=== PATIENT | female | born 1960 | race Caucasian/White ===

== ENCOUNTER → 2018-06-25 | Outpatient (CLI) | payer BC ==
--- NOTE | 2018-06-26 09:16 | MM ---
Reason for exam: screening (asymptomatic). Last mammogram was performed 3 years and 5 months ago. History: Patient is postmenopausal. Family history of breast cancer in sister at age 54. Took hormonal contraceptives for 5 years. Physical Findings: A clinical breast exam by your physician is recommended on an annual basis and results should be correlated with mammographic findings. MG 3D Screening Mammo W/Cad Bilateral CC and MLO view(s) were taken. Prior study comparison: January 31, 2015, bilateral MG screening mammo w CAD. November 30, 2013, bilateral MG screening mammo w CAD. The breast tissue is heterogeneously dense. This may lower the sensitivity of mammography. No suspicious abnormality on the right. Focal asymmetry of the left upper inner quadrant at anterior depth 2.5cm from nipple on CC view and 3cm from nipple on MLO view. ASSESSMENT: Incomplete: need additional imaging evaluation, BI-RAD 0 RECOMMENDATION: Special view mammogram of the left breast. If lesion persists on supplemental views, image directed ultrasound is recommended. [facility] will attempt to contact patient to return for supplemental views and ultrasound if indicated.
== END ==
LOC: RADMAMWWP 15:44
PROVIDERS: ATTEND Family Medicine
DX: Z12.31 Encounter for screening mammogram for malignant neoplasm of breast (principal)
CPT/HCPCS: 77063; 77067

== ENCOUNTER → 2018-07-16 | Outpatient (CLI) | payer BC ==
--- NOTE | 2018-07-16 13:31 | MM ---
Reason for exam: additional evaluation requested from abnormal screening. Last mammogram was performed 1 month ago. History: Patient is postmenopausal. Family history of breast cancer in sister at age 54. Took hormonal contraceptives for 5 years. Physical Findings: Nurse did not find any significant physical abnormalities on exam. MG 3D Work Up W/Cad LT LM and spot compression MLO view(s) were taken of the left breast. Prior study comparison: June 25, 2018, bilateral MG 3d screening mammo w/cad. January 31, 2015, bilateral MG screening mammo w CAD. The breast tissue is heterogeneously dense. This may lower the sensitivity of mammography. These results were verbally communicated with the patient and result sheet given to the patient on 07/16/18. ASSESSMENT: Benign, BI-RAD 2 RECOMMENDATION: Return to routine screening mammogram schedule for both breasts.
== END ==
LOC: RADMAMWWP 08:06
PROVIDERS: ATTEND Family Medicine
DX: R92.8 Other abnormal and inconclusive findings on diagnostic imaging of breast (principal)
CPT/HCPCS: 77061; 77065

== ENCOUNTER → 2019-07-22 | Outpatient (CLI) | payer BC ==
--- NOTE | 2019-07-26 09:38 | MM ---
Reason for exam: screening (asymptomatic). Last mammogram was performed 1 year ago. History: Patient is postmenopausal. Family history of breast cancer in sister at age 54. Took hormonal contraceptives for 5 years. Physical Findings: A clinical breast exam by your physician is recommended on an annual basis and results should be correlated with mammographic findings. MG 3D Screening Mammo W/Cad Bilateral CC and MLO view(s) were taken. Prior study comparison: July 16, 2018, left breast MG 3d work up w/cad LT. June 25, 2018, bilateral MG 3d screening mammo w/cad. The breast tissue is heterogeneously dense. This may lower the sensitivity of mammography. Posterior and superior asymmetric density on the right MLO view incompletely disperses on 3D. ASSESSMENT: Incomplete: need additional imaging evaluation, BI-RAD 0 RECOMMENDATION: Special view mammogram of the right breast. (3D) If lesion persists on supplemental views, image directed ultrasound is recommended. [facility] will attempt to contact patient to return for supplemental views and ultrasound if indicated.
== END | disposition home or self-care (01) ==
LOC: RADMAMWWP 15:55
PROVIDERS: ATTEND Family Medicine
DX: Z12.31 Encounter for screening mammogram for malignant neoplasm of breast (principal); R92.8 Other abnormal and inconclusive findings on diagnostic imaging of breast
CPT/HCPCS: 77063; 77067

== ENCOUNTER → 2019-08-04 | Outpatient (CLI) | payer BC ==
--- NOTE | 2019-08-05 11:42 | MM ---
Reason for exam: additional evaluation requested from abnormal screening. Last mammogram was performed less than 1 month ago. History: Patient is postmenopausal. Family history of breast cancer in sister at age 54. Took hormonal contraceptives for 5 years. Physical Findings: Nurse did not find any significant physical abnormalities on exam. MG 3D Work Up W/Cad RT Spot compression CC, spot compression MLO, and ML view(s) were taken of the right breast. Prior study comparison: July 22, 2019, bilateral MG 3d screening mammo w/cad. July 16, 2018, left breast MG 3d work up w/cad LT. The breast tissue is heterogeneously dense. This may lower the sensitivity of mammography. There is no discrete abnormality including area of concern on compression and ML. These results were verbally communicated with the patient and result sheet given to the patient on 08/04/19. ASSESSMENT: Benign, BI-RAD 2 RECOMMENDATION: Return to routine screening mammogram schedule for both breasts. Back on schedule.
== END | disposition home or self-care (01) ==
LOC: RADMAMWWP 14:20
PROVIDERS: ATTEND Family Medicine
DX: R92.8 Other abnormal and inconclusive findings on diagnostic imaging of breast (principal)
CPT/HCPCS: 77061; 77065

== ENCOUNTER 2022-12-07 12:34 | Emergency (ER) | payer BC ==
--- NOTE | 2022-12-07 12:53 | ED ---
General Adult HPI - General Chief complaint: Fall Stated complaint: Fall-back injury Time Seen by Provider: 12/07/22 12:51 Source: patient Mode of arrival: ambulatory Limitations: no limitations - History of Present Illness Initial comments: Patient presents to the ED with her for evaluation status post sustaining a mechanical fall 4 days ago. Patient states that she acidentally tripped on something in her garage and fell onto the left side of her back. Patient states that she has been having left posterior and lateral rib pain since this fall. Patient states that her pain has been getting worse daily. Patient states that she has been taking naproxen for her pain without much relief (last dose yesterday). Patient admits that her pain is worse with deep inspiration and certain changes in position. Patient admits to head injury at that time, but she denies LOC or headache. Patient denies use of any anticoagulant medications. Patient denies any other injury or site of pain. Patient denies headache, LOC, focal numbness/weakness/neuro deficit, visual changes, neck/upper back pain, dyspnea, cough or cold symptoms, palpitations, dizziness, abdominal pain, nausea or vomiting, dysuria/hematuria/urinary frequency/urinary symptoms, or any other symptoms or complaints. - Related Data Allergies Allergy/AdvReac Type Severity Reaction Status Date / Time No Known Allergies Allergy Verified 12/07/22 12:49 Review of Systems ROS Statement: Those systems with pertinent positive or pertinent negative responses have been documented in the HPI. ROS Other: All systems not noted in ROS Statement are negative. Past Medical History Past Medical History: No Reported History History of Any Multi-Drug Resistant Organisms: None Reported Past Surgical History: No Surgical Hx Reported Past Psychological History: No Psychological Hx Reported Smoking Status: Current every day smoker Past Alcohol Use History: Occasional Past Drug Use History: None Reported General Exam Limitations: no limitations General appearance: alert, in no apparent distress Head exam: Present: atraumatic, normocephalic Eye exam: Present: normal appearance, PERRL, EOMI ENT exam: Present: mucous membranes moist, TM's normal bilaterally Neck exam: Present: other (Trachea is in midline). Absent: tenderness Respiratory exam: Present: normal lung sounds bilaterally, other (Left lateral chest wall tenderness without any ecchymosis, deformity or crepitation noted). Absent: respiratory distress, wheezes, rales, rhonchi, stridor Cardiovascular Exam: Present: regular rate, normal rhythm, normal heart sounds, other (Normal radial pulses bilaterally) GI/Abdominal exam: Present: soft. Absent: distended, tenderness, guarding Extremities exam: Present: full ROM. Absent: tenderness, pedal edema Back exam: Present: full ROM, other (Left thoracic/posterior rib tenderness without any ecchymosis, deformity or crepitation appreciated; no midline spinal tenderness) Neurological exam: Present: alert, oriented X3, CN II-XII intact. Absent: motor sensory deficit Psychiatric exam: Present: normal affect, normal mood Skin exam: Present: warm, dry, intact, normal color Course Vital Signs 12/07/22 12:46 Temperature 97.9 F Pulse Rate 84 Respiratory 20 Rate Blood Pressure 125/89 O2 Sat by Pulse 97 Oximetry - Reevaluation(s) Reevaluation #1: 12/07/22 15:53 Patient denies development of any new pain or symptoms while in the ED. Patient remains alert and breathing comfortably with a normal room air oxygen saturation. Patient and are aware of the patient's x-ray finding of rib fractures. Patient feels comfortable being discharged home at this time. Patient will be provided with a starter pack of Tylenol #3's, as well as an incentive spirometer with education, from the ED. Patient was counseled about rib fractures, and she was clearly explained return and follow-up instructions. Patient was instructed to follow up closely with her primary care provider. Patient feels comfortable with this plan. Medical Decision Making - Medical Decision Making Was pt. sent in by a medical professional or institution (, PA, LEATHER STITCHER, urgent care, hospital, or longterm...) When possible be specific @ -No Did you speak to anyone other than the patient for history (EMS, parent, family, police, friend...)? What history was obtained from this source @ -No Did you review nursing and triage notes (agree or disagree)? Why? @ -I reviewed and agree with nursing and triage notes Were old charts reviewed (outside hosp., previous admission, EMS record, old EKG, old radiological studies, urgent care reports/EKG's, longterm records)? Report findings @ -No old charts were reviewed Differential Diagnosis (chest pain, altered mental status, abdominal pain women, abdominal pain men, vaginal bleeding, weakness, fever, dyspnea, syncope, headache, dizziness, GI bleed, back pain, seizure, CVA, palpatations, mental health, musculoskeletal)? @ -Fall, contusion, fracture, strain, pneumothorax EKG interpreted by me (3pts min.). @ -None done X-rays interpreted by me (1pt min.). @ -As above CT interpreted by me (1pt min.). @ -None done U/S interpreted by me (1pt. min.). @ -None done What testing was considered but not performed or refused? (CT, X-rays, U/S, labs)? Why? @ -None What meds were considered but not given or refused? Why? @ -None Did you discuss the management of the patient with other professionals (professionals i.e. , PA, LEATHER STITCHER, lab, RT, psych nurse, child welfare social worker, neighborhood coordinator, teacher, food safety officer, social work case manager)? Give summary @ -No Was smoking cessation discussed for >3mins.? @ -No Was critical care preformed (if so, how long)? @ -No Were there social determinants of health that impacted care today? How? (Homelessness, low income, unemployed, alcoholism, drug addiction, transportation, low edu. Level, literacy, decrease access to med. care, retirement, rehab)? @ -No Was there de-escalation of care discussed even if they declined (Discuss DNR or withdrawal of care, Hospice)? DNR status @ -No What co-morbidities impacted this encounter? (DM, HTN, Smoking, COPD, CAD, Cancer, CVA, ARF, Chemo, Hep., AIDS, mental health diagnosis, sleep apnea, morbid obesity)? @ -None Was patient admitted / discharged? Hospital course, mention meds given and route, prescriptions, significant lab abnormalities, going to OR and other pertinent info. @ -Patient was treated with oral pain meds in the ED. Patient and are aware of the patient's x-ray finding of rib fractures. Patient will be provided with a starter pack of Tylenol #3's, as well as an incentive spirometer with education, from the ED. Patient was counseled about rib fractures, and she was clearly explained return and follow-up instructions. Patient was instructed to follow up closely with her primary care provider. Patient feels comfortable with this plan. Undiagnosed new problem with uncertain prognosis? @ -No Drug Therapy requiring intensive monitoring for toxicity (Heparin, Nitro, Insulin, Cardizem)? @ -No Were any procedures done? @ -No Diagnosis/symptom? @ -Left-sided rib fractures Acute, or Chronic, or Acute on Chronic? @ -Acute Uncomplicated (without systemic symptoms) or Complicated (systemic symptoms)? @ -Uncomplicated Side effects of treatment? @ -No Exacerbation, Progression, or Severe Exacerbation? @ -No Poses a threat to life or bodily function? How? (Chest pain, [place], [place], pneumonia, PE, COPD, DKA, ARF, appy, cholecystitis, CVA, Diverticulitis, Homicidal, Suicidal, threat to staff... and all critical care pts) @ -No - Radiology Data Left ribs/PA chest x-rays (interpreted by me): Mildly displaced left anterolateral eighth and ninth rib fractures. No evidence of pneumothorax. Disposition Clinical Impression: Fall, Left rib fracture Disposition: HOME SELF-CARE Condition: Stable Instructions (If sedation given, give patient instructions): Rib Fracture (ED), Fall Prevention (ED) Additional Instructions: Return to the ER immediately should you develop new or worsening pain, a fever, difficulty breathing, feeling dizzy or faint, or new or worsening symptoms. Follow up closely with your primary care provider. Is patient prescribed a controlled substance at d/c from ED?: No Referrals: Beni Hercules MD [Primary Care Provider] - 1-2 days Time of Disposition: 15:55
--- NOTE | 2022-12-07 13:44 | XR ---
EXAMINATION TYPE: XR ribs LT w pa chest xray DATE OF EXAM: 12/07/2022 CLINICAL HISTORY: Falling injury with left-sided pain. TECHNIQUE: Single frontal view of the chest is obtained. A frontal and oblique images left-sided ribs . COMPARISON: Chest and left-sided rib x-ray March 10, 2022 FINDINGS: There is no suspicious new focal air space opacity, pleural effusion, or pneumothorax seen . The cardiac silhouette size is stable and within normal limits. Underlying scoliosis is redemonstr ated. Dedicated images of the left-sided ribs show no acute displaced fracture. Overlying soft tissue is un remarkable. IMPRESSION: 1. No acute cardiopulmonary process. 2. No acute displaced left-sided rib fracture. No significant change from prior.
[2022-12-07] MEDS: HYDROcodone/APAP 5-325MG 1 EACH TAB PO STA ×3 (13:51→13:57)
[2022-12-07] MEDS ORDERED: ACET/COD 300 MG/30 MG STARTER PACK 6 TAB BTL PO STA (13:53)
[2022-12-07 16:14] VITALS: BP 119/71; PULSE 66; RESP 18; TEMP 97.2
== END 2022-12-07 16:14 | disposition home or self-care (01) ==
LOC: EC 12:34
DX: S22.32XA Fracture of one rib, left side, initial encounter for closed fracture (principal); F17.200 Nicotine dependence, unspecified, uncomplicated; W01.0XXA Fall on same level from slipping, tripping and stumbling without subsequent striking against object, initial encounter
CPT/HCPCS: 99284

== ENCOUNTER 2023-11-29 16:09 | Inpatient (IN) | payer BC ==
[2023-11-29] MEDS: MORPHINE SULFATE 4 MG/ML SYRINGE IV STA (16:51)
--- NOTE | 2023-11-29 16:53 | ED ---
Fall HPI - General Chief Complaint: Fall Stated Complaint: R hip dislocation Time Seen by Provider: 11/29/23 16:17 Source: patient, EMS Mode of arrival: EMS - History of Present Illness Initial Comments: This patient is a 63-year-old woman who presents to have evaluation of right hip injury. The patient states that she had been in bed around 3 AM. She got up to use the bathroom and states that she usually sits up in bed to get her surroundings but she got right up. She became lightheaded and fell landing on her right hip. She states that she was then not able to get up and cannot walk on her right leg. EMS was called and brings her here to have evaluation. She did receive fentanyl for the pain related to the injury but states that the pain is coming back. Patient denies weakness or numbness of the extremity. She denies any other injury. MD Complaint: fall Onset/Timin -: hour(s) Fall From: standing When Fall Occurred: other (13) Fall Witnessed: no Place Fall Occurred: home Loss of Consciousness: none Prolonged Down Time?: yes Symptoms Prior to Fall: lightheadedness Location - Extremities: Right: Thigh Severity: severe Quality: sharp Associated Symptoms: lightheaded - Related Data Allergies Allergy/AdvReac Type Severity Reaction Status Date / Time No Known Allergies Allergy Verified 11/29/23 16:18 Review of Systems ROS Statement: Those systems with pertinent positive or pertinent negative responses have been documented in the HPI. ROS Other: All systems not noted in ROS Statement are negative. Constitutional: Denies: fever, weakness Respiratory: Denies: cough, dyspnea Cardiovascular: Denies: chest pain, palpitations, edema, syncope Gastrointestinal: Denies: abdominal pain, nausea, vomiting Genitourinary: Denies: dysuria, hematuria Musculoskeletal: Denies: back pain Skin: Denies: rash Neurological: Denies: headache, weakness, numbness, paresthesias Hematological/Lymphatic: Denies: easy bleeding Past Medical History Past Medical History: No Reported History History of Any Multi-Drug Resistant Organisms: None Reported Past Surgical History: No Surgical Hx Reported Past Psychological History: No Psychological Hx Reported Smoking Status: Current every day smoker Past Alcohol Use History: Occasional Past Drug Use History: None Reported General Exam Limitations: no limitations General appearance: alert, in no apparent distress Head exam: Present: atraumatic, normocephalic Eye exam: Present: normal appearance. Absent: scleral icterus, conjunctival injection Neck exam: Present: normal inspection, full ROM. Absent: tenderness Respiratory exam: Present: normal lung sounds bilaterally. Absent: respiratory distress, wheezes, rales, rhonchi, stridor, chest wall tenderness, accessory m uscle use Cardiovascular Exam: Present: regular rate, normal rhythm, normal heart sounds. Absent: systolic murmur, diastolic murmur, rubs, gallop GI/Abdominal exam: Present: soft. Absent: distended, tenderness, guarding, rebound, rigid, mass Extremities exam: Present: tenderness. Absent: full ROM Right Hip exam: Present: tenderness, deformity, internal rotation, shortening. Absent: full ROM, laceration, ecchymosis, crepitus, dislocation Upper Leg exam: Absent: tenderness, swelling Knee exam: Absent: tenderness, swelling Lower Leg exam: Present: full ROM. Absent: tenderness, swelling Ankle exam: Present: full ROM. Absent: tenderness, swelling Foot/Toe exam: Present: full ROM. Absent: tenderness, swelling Neurovascular tendon exam: Present: no vascular compromise. Absent: pulse deficit, abnormal cap refill, motor deficit, sensory deficit Back exam: Present: normal inspection. Absent: CVA tenderness (R), CVA tenderness (L), vertebral tenderness Neurological exam: Present: alert Skin exam: Present: warm, dry, intact, normal color. Absent: rash Course Vital Signs 11/29/23 11/29/23 16:12 17:47 Temperature 98.0 F Pulse Rate 76 73 Respiratory 18 18 Rate Blood Pressure 128/71 125/73 O2 Sat by Pulse 98 98 Oximetry Medical Decision Making - Medical Decision Making The patient had pelvis x-ray which I interpreted to show right femoral neck fracture The patient had right femur x-ray which I interpreted to show right femoral neck fracture The patient had chest x-ray which I interpreted to show scoliosis of the spine. No evident rib fracture or pneumothorax. Was pt. sent in by a medical professional or institution (, PA, WAREHOUSE GENERAL LABORER, urgent care, hospital, or fci...) When possible be specific @ -[No] Did you speak to anyone other than the patient for history (EMS, parent, family, police, friend...)? What history was obtained from this source @ -[No] Did you review nursing and triage notes (agree or disagree)? Why? @ -[I reviewed and agree with nursing and triage notes] Were old charts reviewed (outside hosp., previous admission, EMS record, old EKG, old radiological studies, urgent care reports/EKG's, fci records)? Report findings @ -[No old charts were reviewed] Differential Diagnosis (chest pain, altered mental status, abdominal pain women, abdominal pain men, vaginal bleeding, weakness, fever, dyspnea, syncope, headache, dizziness, GI bleed, back pain, seizure, CVA, palpatations, mental health, musculoskeletal)? @ -Differential Musculoskeletal Muscular strain, contusion, ligament sprain, fracture, arthritis, septic arthritis, bursitis, cellulitis, muscle spasm, nerve compression, DVT, arterial occlusion, herpes zoster, electrolyte abnormality, tumor.... This is not meant to be in all inclusive list EKG interpreted by me (3pts min.). @ -[As above] X-rays interpreted by me (1pt min.). @ -[I interpreted as above CT interpreted by me (1pt min.). @ -[None done] U/S interpreted by me (1pt. min.). @ -[None done] What testing was considered but not performed or refused? (CT, X-rays, U/S, labs)? Why? @ -[None] What meds were considered but not given or refused? Why? @ -[None] Did you discuss the management of the patient with other professionals (professionals i.e. , PA, WAREHOUSE GENERAL LABORER, lab, RT, psych nurse, case management social worker, program schedule clerk, teacher, sales officer, case work aide)? Give summary @ -[Case discussed with the orthopedic surgery team, they are currently in the hospital and will see the patient to decide on the appropriate surgical treatment. Was smoking cessation discussed for >3mins.? @ -[No] Was critical care preformed (if so, how long)? @ -[No] Were there social determinants of health that impacted care today? How? (Homelessness, low income, unemployed, alcoholism, drug addiction, transportation, low edu. Level, literacy, decrease access to med. care, half-way, rehab)? @ -[No] Was there de-escalation of care discussed even if they declined (Discuss DNR or withdrawal of care, Hospice)? DNR status @ -[No] What co-morbidities impacted this encounter? (DM, HTN, Smoking, COPD, CAD, Cancer, CVA, ARF, Chemo, Hep., AIDS, mental health diagnosis, sleep apnea, morb id obesity)? @ -[Smoking, hypertension Was patient admitted / discharged? Hospital course, mention meds given and route, prescriptions, significant lab abnormalities, going to OR and other pertinent info. @ -[Patient admitted, as above Undiagnosed new problem with uncertain prognosis? @ -[No] Drug Therapy requiring intensive monitoring for toxicity (Heparin, Nitro, Insulin, Cardizem)? @ -[No] Were any procedures done? @ -[No] Diagnosis/symptom? @ -[Acute right femoral neck fracture Acute, or Chronic, or Acute on Chronic? @ -[Acute Uncomplicated (without systemic symptoms) or Complicated (systemic symptoms)? @ -[Uncomplicated Side effects of treatment? @ -[No] Exacerbation, Progression, or Severe Exacerbation? @ -[No] Poses a threat to life or bodily function? How? (Chest pain, [place], [place], pneumonia, PE, COPD, DKA, ARF, appy, cholecystitis, CVA, Diverticulitis, Homicidal, Suicidal, threat to staff... and all critical care pts) @ -[No] - EKG Data -: EKG Interpreted by Me EKG shows normal: sinus rhythm, axis (Normal), intervals (Normal), QRS complexes (Normal) Rate: normal (Rate 76 bpm) Interpretation: nonspecific ST-T wave changes Disposition Clinical Impression: Fall, Fractured femoral neck Disposition: ADMITTED IP TO THIS HOSP Condition: Good Is patient prescribed a controlled substance at d/c from ED?: No
--- NOTE | 2023-11-29 17:16 | XR ---
EXAMINATION TYPE: XR chest 1V DATE OF EXAM: 11/29/2023 COMPARISON: 12/07/2022 HISTORY: 63-year-old female with fall, preoperative clearance TECHNIQUE: Single frontal view of the chest is obtained. FINDINGS: Heart normal size. Interstitial prominence is a chronic appearance. No consolidation or pleural effus ion. S-shaped scoliosis. Old lower left rib fracture deformity. IMPRESSION: S-shaped scoliosis and chronic changes. No acute process seen.
[2023-11-29] MEDS ORDERED: MAG HYDROX/AL HYDROX/SIMETH 30 ML CUP PO PRN (17:18)
[2023-11-29] MEDS ORDERED: NALOXONE 0.4 MG/ML 1 ML VIAL IV PRN (17:18)
[2023-11-29] MEDS ORDERED: ONDANSETRON 4 MG/2 ML VIAL IVP PRN (17:18)
--- NOTE | 2023-11-29 17:19 | XR ---
EXAMINATION TYPE: XR pelvis AP view, XR femur 2 views RT DATE OF EXAM: 11/29/2023 Comparison: None Clinical History: 63-year-old female with pain after fall injury Findings: Pelvis: There is a transcervical femoral neck fracture with impaction and superior displacement of 1.3 cm. Mi ld degenerative change of both hips. Osteopenia. SI joints appear symmetric and intact as does the pu bic symphysis. Right femur: Knee articulation is grossly intact. Diffuse muscle atrophy. No femoral shaft fracture. Impression (pelvis and right femur): Impacted transcervical right femoral neck fracture with 1.3 cm of superior displacement. Osteopenia a nd diffuse muscle atrophy.
[2023-11-29] MEDS: NICOTINE 14MG/24HR PATCH TRANSDERM STA (17:48)
[2023-11-29] MEDS: SODIUM CHLORIDE 0.9% 500 ML 500 ML IV STA (17:48)
[2023-11-29 18:20] LABS: INR 0.9 (<1.2); Partial Thromboplastin Time 24.7 sec (22.0-30.0); Prothrombin Time 10.5 sec (10.0-12.5)
[2023-11-29 18:24] LABS: Basophils % (A) 0 %; Eosinophils # (A) 0.1 k/uL (0-0.7); Eosinophils % (A) 2 %; HCT 38.8 % (34.0-46.0); HGB 13.6 gm/dL (11.4-16.0); Lymphocytes # (A) 0.8 k/uL (1.0-4.8); Lymphocytes % (A) 10 %; MCH 34.9 pg (25.0-35.0); MCHC 35.1 g/dL (31.0-37.0); MCV 99.4 fL (80.0-100.0); Mean Platelet Volume 8.8; Monocytes # (A) 0.5 k/uL (0-1.0); Monocytes % (A) 6 %; Neutrophils # (A) 6.8 k/uL (1.3-7.7); Neutrophils % (A) 81 %; Platelet Count 198 k/uL (150-450); RDW 12.8 % (11.5-15.5); WBC 8.4 k/uL (3.8-10.6)
[2023-11-29 18:28] LABS: African American GFR (CKD) >90 (>60 ml/min/1.73 sqM); Anion Gap 5 mmol/L; Blood Urea Nitrogen 15 mg/dL (7-17); Calcium 8.5 mg/dL (8.4-10.2); Carbon Dioxide 33 mmol/L (22-30); Chloride 97 mmol/L (98-107); Creatine Kinase 57 U/L (30-135); Glucose 95 mg/dL (74-99); Non-African American GFR(CKD) >90 (>60 ml/min/1.73 sqM); Sodium 135 mmol/L (137-145)
[2023-11-29 18:43] LABS: Potassium 2.7 mmol/L (3.5-5.1)
[2023-11-29] MEDS: POTASSIUM CHLORIDE ER 20 MEQ TAB.ER PO STA (20:10)
[2023-11-29] MEDS: SODIUM CHLORIDE 0.9% 1,000 ML IV STA (20:10)
--- NOTE | 2023-11-29 20:26 | P.HPOR ---
History of Present Illness H&P Date: 11/29/23 Chief Complaint: Fall with trauma, Right hip pain History of Presenting Illness Patient is a pleasant 63 year old female that presented to the ER after a fall at home. Patient states that she was getting out of bed around 3 AM to use the restroom and became lightheaded and lost her balance and fell landing on her right hip. Patient states that she was unable to get up and that she crawled back to her bedroom and was laying next to the bed. Spouse states that he found patient when he got up to use restroom. He assisted patient to the bed and then brought patient in this morning. Patient states that she is normally independent without any assistive devices. Patient is a daily smoker, past medical history of hypertension and hyperlipidemia. Patient denies any orthopedic history. Patient seen and examined in ER on stretcher. Spouse is at bedside. Patient states that her pain is managed on current regimen. Patient is able to eat and drink tonight she will be n.p.o. at midnight. Patient denies any numbness or tingling to the right lower extremity. Patient is able to move all other extremities without any difficulty. Dr. Aguilera was present during exam and discussed surgical intervention of a right hip hemiarthroplasty versus a total right hip arthroplasty. Patient and spouse verbalized understanding. Informed patient that her procedure will be scheduled for tomorrow 11/30/2023. Discussed aftercare and possible need for SANTA at discharge pending PT/OT evaluation and status of how patient is recovering. X-ray of the pelvis and right femur taken on 11/29/2023 demonstrate a transcervical femoral neck fracture with impaction and cyst. Displacement. There is no femoral shaft fracture. Osteopenia and diffuse muscle atrophy is also demonstrated. Review of Systems Pertinent positives and negatives as discussed in HPI, a complete review of systems was performed and all other systems are negative. Physical Examination Inspection: Negative for any open fractures, ecchymosis, significant erythema/ulcers. External rotation of the right lower extremity. Sensation: Sensation is equal, symmetric, bilaterally intact throughout the upper and lower extremities Palpation: Tender to palpation over the right hip region. Range of motion: Patient does have full range of motion bilateral upper and left lower extremities on exam. Limited ROM of the right lower extremity due to fracture and pain. Motor: 5/5 in all major motor groups in the bilateral upper and left lower extremities, 3/5 in right lower extremity due to pain and hip fracture Special tests: Pain is reproduced with log roll of the right lower extremity. Neurovascular: Radial pulse intact, 2+ bilaterally. Cap refill under 3 seconds in digits upper extremities. Assessment and Plan Fall with trauma Right femoral neck fracture Osteopenia Diffuse muscle atrophy At this time we have discussed with patient and spouse in regards to right hip hemiarthroplasty to be performed tomorrow, 11/30/2023. they both verbalize understanding and agree to proceed with surgical intervention. Patient is to be n.p.o. at midnight. 2. Appreciate medical management 3. Pain management -continue with IV and oral pain management, utilize ice therapy to right hip. 4. DVT prophylaxis -mechanical, IRMA hose 5. Patient is to be bed rest, order for Queen catheter. 6. Consult placed for Medical Management I reviewed and discussed this case with my attending Dr. Aguilera, whom has reviewed this chart and films and is in agreement with assessment and plan of care as outlined above. I have personally seen and examined the patient, performed the documentation and the assessment and plan as written. Number of minutes spent on the visit: 30m. Past Medical History Past Medical History: No Reported History History of Any Multi-Drug Resistant Organisms: None Reported Past Surgical History: No Surgical Hx Reported Past Psychological History: No Psychological Hx Reported Smoking Status: Current every day smoker Past Alcohol Use History: Occasional Past Drug Use History: None Reported Medications and Allergies Home Medications Medication Instructions Recorded Confirmed Type Albuterol Sulfate [Albuterol 2 puff PO RT-Q6H PRN 11/29/23 11/29/23 History Sulfate Hfa] Atorvastatin [Lipitor] 20 mg PO HS 11/29/23 11/29/23 History atenoloL [Tenormin] 50 mg PO BID 11/29/23 11/29/23 History hydroCHLOROthiazide [Hydrodiuril] 12.5 mg PO DAILY 11/29/23 11/29/23 History traZODone HCL [Desyrel] 50 mg PO HS PRN 11/29/23 11/29/23 History Allergies Allergy/AdvReac Type Severity Reaction Status Date / Time No Known Allergies Allergy Verified 11/29/23 18:17 Results - Labs Labs: Abnormal Lab Results - Last 24 Hours (Table) 11/29/23 11/29/23 Range/Units 17:58 17:58 Lymphocytes # 0.8 L (1.0-4.8) k/uL Sodium 135 L (137-145) mmol/L Potassium 2.7 L* (3.5-5.1) mmol/L Chloride 97 L (98-107) mmol/L Carbon Dioxide 33 H (22-30) mmol/L H & H 11/29/23 Range/Units 17:58 Hgb 13.6 (11.4-16.0) gm/dL Hct 38.8 (34.0-46.0) % Coagulation 11/29/23 Range/Units 17:58 INR 0.9 (<1.2) Result Diagrams: 11/29/23 17:58 11/29/23 17:58
[2023-11-29] MEDS: MORPHINE SULFATE 4 MG/ML SYRINGE IV PRN (21:24)
[2023-11-30] MEDS ORDERED: Potassium Replacement Protocol 1 EACH MISC MISCELLANE PRN (00:34)
[2023-11-30] MEDS: POTASSIUM CHLORIDE ER 20 MEQ TAB.ER PO SCH (05:04)
--- NOTE | 2023-11-30 07:08 | P.PN ---
Progress Note - Text Progress Note Date: 11/30/23 Orthopedic Surgery Risk Review Yoana Sandoval is a 63 yo female presenting for evaluation of sudden onset RIGHT HIP pain, inability to ambulate after fall from standing at home. It was my pleasure to have seen and examined Yoana Sandoval. In our visit today we have had a chance to go over subjective complaints, physical examination findings and treatments including the natural course history without intervention and various interventional options. Her imaging demonstrates right femoral neck fracture, displaced, complete with pre-existing FA OA changes. On physical exam, Yoana Sandoval demonstrates pain with motion of right lower extremity, which is NV intact at this time. I have explained to the patient that this fracture needs stabilization. Based on the patients imaging, physical exam, and the rapid progression and disabling nature of her symptoms, at this time I recommend surgery in the form or a: RIGHT TOTAL HIP ARTHROPLASTY VS HEMIARTHROPLASTY I discussed the risk and benefits of this procedure at length with Yoana Sandoval. Questions were invited and answered, and the patient wishes to proceed as outlined below. Currently, I am recommendin. RIGHT TOTAL HIP ARTHROPLASTY VS HEMIARTHROPLASTY 2. Review of surgical risks and benefits as well as an educational packet on the proposed surgical procedure. Risks: All surgical procedures come with inherent risks, including those related to positioning, anesthesia, intraoperative findings, and postoperative complications. It is important to understand that surgery does not come with any guarantee of a successful outcome as complications and adverse events are always possible. The patient was given a handout discussing the surgical procedure and risks associated with the intervention, both of which were discussed with the patient. These risks include but are not limited to the following: - Experiencing same, different or even worse symptoms compared to before surgery. - Requiring further surgery or other forms of treatment presently or at some time in the future . - On an extreme but fortunately relatively rare basis severe complication such as blindness, stroke, heart attack, temporary and/or permanent nerve injury, paralysis, coma, or may occur, sometimes without known explana tion. - Surgical complications may include but are not limited to risk of infection, fluid accumulation in the surgical dissection site, including a seroma or hematoma, that requires additional surgery, wound drainage, bleeding, new numbness or weakness, vision changes/loss, spinal fluid leakage, non-healing and/or infected incision, headaches, difficulty or inability to swallow, hoarseness, hemopneumothorax, pneumothorax, injury to nerves, spinal cord, blood vessels, lymphatics or other vital organs (i.e., bowel injury, injury to the great vessels); heterotopic bone formation; complications related to the hardware such as screws, rods, including misplaced hardware, device failure, hardware fracture/breakage, or hardware loosening; retained surgical instrumentations or devices and the need for further surgery. - Medical risks of the planned surgery include but are not limited to generalized Infections to the whole body or local areas outside of the surgical site (sepsis), heart attack, bleeding, anaphylaxis, meningitis, seizure, epilepsy, hearing loss, burn figueroa, laceration of the head or other areas of the body, bruising, hypersensitivity of the skin, bladder over distension; allergic reaction; shoulder injury related to positioning; fat, blood and air clots to other areas of the body like heart, lungs, brain; failure of internal organs such as lungs, kidneys, liver and excessive bleeding. If blood transfusions are necessary, note that transfusions may cause intolerance reactions such as anaphylaxis or other complex reactions. Despite best efforts, the results of surgery might not heal in terms of bone, soft tissues such as skin, fascia, ligaments, and joints. [facility] has multiple operating rooms with single and overlapping room s running daily. They currently function under the required guidelines as produced by the Senate Finance Committee with regards to the overlapping rooms and will continue to comply with changes to this policy as they occur. The requirements include and are complied with as follows: (1) the critical portions of the overlapping rooms will not occur at the same time, (2) the attending physician will be physically present during the critical portions of the procedure and immediately available during the entire case, and (3) a back-up attending is designated should the primary attending not be immediately available. The patient has had a chance to review all the listed information, has been given print outs detailing this information, and has had all his/her questions answered to their satisfaction. It was my pleasure to have seen and examined Yoana Sandoval. In our visit today we have had a chance to go over my understanding of our patient's current condition, the natural course history without intervention and various interventional options. Questions were invited and answered, and the patient wishes to proceed as outlined above. I have seen and examined the patient for 25 minutes and we have spent more than 50% of the time in repeat and detailed counseling about the patient's condition, its natural course history with out and as much as can be predicted with surgery and re-review of various surgical treatment options. In conclusion, Yoana Sandoval requested we proceed with the above suggested surgery and are willing to accept risks and limitations of the suggested surgery as nature of the disease process and our best attempts at treatment for the condition. Thank you again for allowing us to be part of your patient's care. Please don't hesitate to contact me if you have any further questions. Signed and authenticated by: Juan [facility] [address] [facility], [address] [address]
[2023-11-30] MEDS ORDERED: TRANEXAMIC 1,000 MG/100ML-NACL 1,000 MG in SALINE 1 100ML.BAG IVPB PRN (08:00)
--- NOTE | 2023-11-30 08:48 | P.CONS ---
History of Present Illness - Reason for Consult Consult date: 11/30/23 pre-op eval Requesting physician: Juan Aguilera - Chief Complaint fall - History of Present Illness Patient is a 63-year-old female with hypertension, dyslipidemia, and ongoing nicotine dependency who presents to the hospital with a fall from standing after getting lightheaded. In the ER she underwent an extensive evaluation which was remarkable for potassium of 2.7. Chest x-ray showed scoliosis. Femur x-ray demonstrated impacted transcervical right femoral fracture with 1.3 cm of displacement. Patient seen and examined at bedside. Patient seen and examined at bedside. She is having some significant heartburn right now which is not unusual for the patient. She reports that yesterday she quickly got up from bed and got dizzy and then fell. She denies loss of consciousness. She states she has had this problem in the past and typically sits for a minute on the edge of the bed however yesterday she had to go to the bathroom so bad that she got up very anahy ckly. She typically is independent in her all of her ADLs and IADLs. She is able to do moderate to heavy housework as well as yard work. She is able to do some recreational sports such as golf. She does smoke approximately 1 pack daily. She has not had any recent chest pain or significant shortness of breath. She does use albuterol as needed for asthma. Vital signs reviewed General: nontoxic, no distress, appears at stated age Derm: warm, dry Eyes: EOMI, no lid lag, anicteric sclera, pupils equal round reactive to light ENT: Nose and ears atraumatic Cardiovascular: S1S2 reg, no murmur, no edema Lungs: clear to auscultation bilateral, no rhonchi, no rales, no wheeze, no accessory muscle use Abdominal: soft, nontender to palpation, no guarding Ext: no gross muscle atrophy, no contractures Neuro: CN II-XII grossly intact, No focal neuro deficits Psych: Alert, oriented, appropriate affect Assessment/Plan: Patient is a 63-year-old female with right femoral fracture - EKG demonstrated normal sinus rhythm without any significant ST-T wave changes. - NSQIP Calculated for total hip arthroplasty. Patient has above average risk of serious complication at 3.6% versus average of 3.1%. She has below average risk of cardiac complications at 0.1%, below average risk for pneumonia at 0.1%, below average risk of at 0.1%. - Patient's Morales activity index is 8.97 METS. - Patient is medically optimized for the proposed surgery. No further cardiac evaluation warranted. She does need repeat K+ level to ensure it has risen appropriately. Hypokalemia -Patient received a total of 100 mill equivalents of potassium overnight. Currently awaiting repeat potassium level -Check potassium and magnesium again in a.m. Hypertension -Atenolol 50 mg twice daily, hold hydrochlorothiazide today -Follow blood pressures Dyslipidemia -Lipitor 20 mg at night GERD -Protonix IV push x 1 now and then Protonix 40 mg p.o. twice daily Asthma without exacerbation -As needed albuterol Nicotine dependency - nicotine patch 21 mg daily - cessation encouraged Imaging: None new Data Review: Labs from admission show unremarkable CBC, basic metabolic profile remarkable for potassium of 2.7 and sodium of 135. Thank you for allowing us to participate in the care of this pleasant patient. Do not hesitate to contact us with questions. Someone can be reached from the [facility] [place] hospitalist group all hours of the day at [phone] or via [email or web address]. This dictation was prepared using [employer] voice recognition software. Though every attempt is made to correct errors during dictation some may still exist. Past Medical History Past Medical History: Asthma, GERD/Reflux, Hyperlipidemia, Hypertension History of Any Multi-Drug Resistant Organisms: None Reported Past Surgical History: Tonsillectomy Past Anesthesia/Blood Transfusion Reactions: No Reported Reaction, Unable to Obt ain Past Psychological History: No Psychological Hx Reported Smoking Status: Current every day smoker (1 ppd) Past Alcohol Use History: Occasional Past Drug Use History: None Reported Medications and Allergies Home Medications Medication Instructions Recorded Confirmed Type Albuterol Sulfate [Albuterol 2 puff PO RT-Q6H PRN 11/29/23 11/29/23 History Sulfate Hfa] Atorvastatin [Lipitor] 20 mg PO HS 11/29/23 11/29/23 History atenoloL [Tenormin] 50 mg PO BID 11/29/23 11/29/23 History hydroCHLOROthiazide [Hydrodiuril] 12.5 mg PO DAILY 11/29/23 11/29/23 History traZODone HCL [Desyrel] 50 mg PO HS PRN 11/29/23 11/29/23 History Allergies Allergy/AdvReac Type Severity Reaction Status Date / Time No Known Allergies Allergy Verified 11/29/23 18:17 Physical Exam Osteopathic Statement: *. No significant issues noted on an osteopathic structural exam other than those noted in the History and Physical/Consult. Vitals: Vital Signs Temp Pulse Pulse Resp BP BP Pulse Ox 11/30/23 07:16 98.6 F 84 18 109/70 93 L 11/30/23 01:52 98 F 72 20 109/70 97 11/29/23 20:00 78 18 134/84 97 11/29/23 17:47 73 18 125/73 98 11/29/23 16:12 98.0 F 76 18 128/71 98 Intake and Output 11/29/23 11/30/23 11/30/23 22:59 06:59 14:59 Other: Weight 49.895 kg Results CBC & Chem 7: 11/30/23 10:10 11/30/23 10:10 Labs: Abnormal Lab Results - Last 24 Hours (Table) 11/29/23 11/29/23 11/29/23 Range/Units 17:58 17:58 23:16 Lymphocytes # 0.8 L (1.0-4.8) k/uL Sodium 135 L (137-145) mmol/L Potassium 2.7 L* 2.8 L (3.5-5.1) mmol/L Chloride 97 L (98-107) mmol/L Carbon Dioxide 33 H (22-30) mmol/L
[2023-11-30] MEDS ORDERED: ALBUTEROL NEBULIZED 2.5 MG/3 ML INHALATION PRN (10:09)
[2023-11-30] MEDS: PANTOPRAZOLE 40 MG/10 ML VIAL IVP ONE (10:41)
[2023-11-30 10:44] LABS: HCT 38.8 % (34.0-46.0); HGB 13.1 gm/dL (11.4-16.0); MCHC 33.8 g/dL (31.0-37.0); MCV 103.8 fL (80.0-100.0); Macrocytosis Slight; Mean Platelet Volume 8.9; Platelet Count 186 k/uL (150-450); RBC 3.74 m/uL (3.80-5.40); RDW 12.4 % (11.5-15.5); WBC 7.1 k/uL (3.8-10.6)
[2023-11-30] MEDS: LACTATED RINGERS 1,000 ML IV ONE ×2 (10:44→12:24)
[2023-11-30 10:56] LABS: African American GFR (CKD) >90 (>60 ml/min/1.73 sqM); Anion Gap 4 mmol/L; Blood Urea Nitrogen 11 mg/dL (7-17); Calcium 8.4 mg/dL (8.4-10.2); Carbon Dioxide 33 mmol/L (22-30); Chloride 101 mmol/L (98-107); Glucose 89 mg/dL (74-99); Magnesium 1.3 mg/dL (1.6-2.3); Non-African American GFR(CKD) >90 (>60 ml/min/1.73 sqM); Potassium 3.5 mmol/L (3.5-5.1); Sodium 138 mmol/L (137-145)
[2023-11-30 11:01] LABS: Appearance,Urine Clear (Clear); Bilirubin,Urine Negative (Negative); Blood,Urine Negative (Negative); Color,Urine Colorless; Glucose,Urine (UA) Negative (Negative); Ketones,Urine Negative (Negative); Leukocyte Esterase,Urine Negative (Negative); Nitrite,Urine Negative (Negative); Protein,Urine Negative (Negative); Specific Gravity,Urine 1.009 (1.001-1.035); Urobilinogen,Urine <2.0 mg/dL (<2.0)
[2023-11-30] MEDS ORDERED: fentaNYL (PF) 50 MCG/ML 2 ML AMP ONE (11:31)
[2023-11-30] MEDS: ceFAZolin 1,000 MG in SODIUM CHLORIDE 0.9% 1,000 ML IRRIGATION ONE (11:31)
[2023-11-30] MEDS ORDERED: GLYCOPYRROLATE 0.2 MG/ML 2 ML VIAL ONE (11:31)
[2023-11-30] MEDS ORDERED: PHENYLEPHRINE 10 MG/ML VIAL ONE (11:31)
[2023-11-30] MEDS: IV FLUID CONTINUATION 1,000 ML IV ONE (11:31)
[2023-11-30] MEDS ORDERED: KETAMINE HCL IN 0.9 % NACL 50 MG/5 ML SYRINGE ONE (11:31)
[2023-11-30] MEDS ORDERED: TRANEXAMIC 1,000 MG/100ML-NACL PREMIX BAG ONE (11:31)
[2023-11-30] MEDS ORDERED: ROCURONIUM 10 MG/ML (5 ML VIAL) IV ONE (11:31)
[2023-11-30] MEDS ORDERED: NEOSTIGMINE 1 MG/ML 10 ML VIAL ONE (11:31)
[2023-11-30] MEDS ORDERED: MIDAZOLAM 2 MG/2 ML VIAL ONE (11:31)
[2023-11-30] MEDS ORDERED: PROPOFOL 10 MG/ML 20 ML VIAL IV ONE (11:31)
[2023-11-30] MEDS ORDERED: hydrOXYzine pamoate 25 MG CAP PO PRN (14:28)
[2023-11-30] MEDS ORDERED: HYDROcodone/APAP 5-325MG 1 EACH TAB PO PRN (14:28)
[2023-11-30] MEDS ORDERED: NALOXONE 0.4 MG/ML 1 ML VIAL IV PRN (14:28)
[2023-11-30] MEDS ORDERED: HYDROmorphone 0.5 MG/0.5 ML SYRINGE IVP PRN (14:28)
[2023-11-30] MEDS ORDERED: ONDANSETRON 4 MG/2 ML VIAL IVP PRN (14:33)
[2023-11-30] MEDS: ROPIVACAINE 5 MG/ML 30 ML VIAL MISCELLANE ONE (14:33)
[2023-11-30] MEDS: HYDROmorphone 0.5 MG/0.5 ML SYRINGE IVP ONE (14:44)
--- NOTE | 2023-11-30 15:04 | XR ---
Fluoroscopy and intraoperative spot films of the right hip. HISTORY: Right hip arthroplasty. COMPARISON: None. TECHNIQUE: 9 intraoperative spot films of a right hip arthroplasty in progress and 1 minute 29 second s of fluoroscopy. FINDINGS: Successful right hip arthroplasty with final images demonstrating anatomic alignment and no acute fra cture.
--- NOTE | 2023-11-30 15:06 | XR ---
Right hip, portable. HISTORY: Right hip arthroplasty. TECHNIQUE: Single AP portable view the right hip was obtained. FINDINGS: Recently placed right hip prosthesis in near anatomic alignment. There is a small amount subcutaneous gas. There is no acute fracture. IMPRESSION: Successful right hip arthroplasty
--- NOTE | 2023-11-30 15:08 | XR ---
Pelvis, portable, single view COMPARISON: 11/30/2023. TECHNIQUE: Single AP portable view the pelvis is obtained. FINDINGS: There is been recent right hip arthroplasty in anatomic alignment. There is mild narrowing of the lef t hip joint space indicating mild osteoarthritis. AP pelvis is osteopenic but there is no acute fracture or focal intraosseous abnormality.. IMPRESSION: 1. Intact pelvis. 2. Right hip arthroplasty in anatomic alignment. 3. Mild osteoarthritic change of the left hip.
[2023-11-30] MEDS: PANTOPRAZOLE 40 MG TABLET PO SCH (17:02)
[2023-11-30] MEDS: NICOTINE 21MG/24HR PATCH TRANSDERM SCH (17:02)
[2023-11-30] MEDS: HYDROmorphone 1 MG/ML 1 ML SYRINGE IVP PRN (19:52)
[2023-11-30] MEDS: SODIUM CHLORIDE 0.9% 1,000 ML IV ONE (20:57)
[2023-11-30] MEDS: ASPIRIN 325 MG TAB PO SCH (21:56)
[2023-11-30] MEDS: SENNOSIDES-DOCUSATE SODIUM 1 EACH TAB PO SCH (21:56)
[2023-12-01] MEDS: HYDROcodone/APAP 7.5-325MG 1 EACH TAB PO PRN (01:01)
--- NOTE | 2023-12-01 07:23 | P.OP ---
Date of Procedure: 11/30/23 Preoperative Diagnosis: 1. RIGHT FEMORAL NECK FRACTURE, COMPLETE, DISPLACED 2. RIGHT HIP OA, MODERATE TO SEVERE 3. S/P FFS AT HOME NO BHT OR LOC 4. COMPLEX MEDICAL PATIENT 5. OSTEOPENIA Postoperative Diagnosis: 1. RIGHT FEMORAL NECK FRACTURE, COMPLETE, DISPLACED 2. RIGHT HIP OA, MODERATE TO SEVERE 3. S/P FFS AT HOME NO BHT OR LOC 4. COMPLEX MEDICAL PATIENT 5. OSTEOPENIA Procedure(s) Performed: 1. RIGHT DIRECT ANTERIOR TOTAL HIP ARTHROPLASTY Implants: MORALES AND NEPHEW 52 ACETABULAR CUP 40 LIPPED LINER 2 FEMURAL STEM WITH COLLAR STD NECK 0-40 HEAD Anesthesia: GETA Surgeon: Juan Aguilera Grocery Supervisor #1: Halley Mancera (WAS PRESENT AND ASSISTED WITH ALL ASPECTS OF THE CASE FROM POSITION TO CLOUSRE) Estimated Blood Loss (ml): 100 Urine output (ml): 250 Pathology: other (Femoral head and neck fracture) Condition: stable Disposition: PACU Indications for Procedure: Yoana Sandoval is a 63 yo female presenting for evaluation of sudden onset RIGHT HIP pain, inability to ambulate after fall from standing at home. It was my pleasure to have seen and examined Yaona Sandoval. In our visit today we have had a chance to go over subjective complaints, physical examination findings and treatments including the natural course history without intervention and various interventional options. Her imaging demonstrates right femoral neck fracture, displaced, complete with pre-existing FA OA changes. On physical exam, Yoana Sandoval demonstrates pain with motion of right lower extremity, which is NV intact at this time. I have explained to the patient that this fracture needs stabilization. Based on the patients imaging, physical exam, and the rapid progression and disabling nature of her symptoms, at this time I recommend surgery in the form or a: RIGHT TOTAL HIP ARTHROPLASTY VS HEMIARTHROPLASTY I discussed the risk and benefits of this procedure at length with Yoana Sandoval. Questions were invited and answered, and the patient wishes to proceed as outlined below. Currently, I am recommendin. RIGHT TOTAL HIP ARTHROPLASTY VS HEMIARTHROPLASTY Description of Procedure: The patient was seen and examined in the preoperative area. All preoperative protocols were followed. Informed consent was obtained risks and benefits of the procedure were discussed at length. Risks including bleeding infection damage to the surrounding tissue and risk of reoperation were discussed with the patient. Risk of anesthesia up to and including was a discussed with the patient. These are outlined in the risk reviewed. They were willing to accept these risks and all of the risks of surgery. The patient was given a weight- based dose of antibiotics in the form of 2 g Ancef. The patient was seen and evaluated by the anesthesia team who deemed them fit for surgery. The site was marked, the patient was willing to proceed with the procedure. The patient was transferred to the operative suite by the Department of anesthesia. There were then drifted off to sleep by the department of anesthesia and GETA anesthesia was used. Once adequate anesthesia had been obtained the patient was carefully transferred to the operative bed. All bony prominences were padded accordingly. SCDs were placed on the nonoperative lower extremities. Arms were well padded. Legs were placed in Jacey boots and secured to the Jacey table. Preoperative images were taken of the pelvis and hip traction was placed on the hip for reduction of the fracture visualization. Preoperative briefing was done with the operative team and everyone was ready for the procedure to start. The patients Right leg was then prepped and draped in the normal sterile fashion. Timeout was then performed and all parties in agreement with the procedure to be performed. Skin marker was used to mariely the skin as well as a wire using fluoroscopic imaging we marked the femoral neck as well as femoral shaft. ASIS was marked and incision was marked 2 cm distal and lateral to the ASIS. This was over the interval of the tensor fascia roni and sartorius were palpable. Skin incision was made then longitudinally in line with this dissection taken down bluntly to the tensor fascia which was identified and cleaned with a sponge. Loose you between the tensor fascia roni and sartorius was then identified inside knife was used to incise this Allis clamp was secured to the tensor fascia and the muscle was bluntly dissected off of this anteriorly and medially into the interval was exposed and a Morales Armstrong interval. Retractors were then placed the circumflex vessels were identified and dissected and aqua mantis was used to cauterize these. Electrocautery was then used to dissect to the deep sartorial fascia. We then identified the femoral neck and the reflected head of the rectus. This was carefully dissected off the anterior portion which helped capsule which was disrupted secondary to the fracture. This is difficult secondary to the fracture fragments as well as the disruption and hematoma in this area. Once it was dissected off a negative Brisa was then placed to retract the reflected head. Cobras were then placed in the superior and inferior portion of the femoral neck and capsulotomy was performed using electrocautery. Once this was performed the retractors were replaced around the femoral neck. The leg was then Rotated 30 and a clean up the femoral neck cut was made with a saw. This exposed the fracture as well as the femoral head. There were many bony fragments in this area as this was a very comminuted fracture. The capsule was then released off of the anterior inferior and superior portion of the femur to allow for excursion. The femoral head was then secured with a corkscrew and was removed. The acetabulum was identified and was inspected there was a decent amount of wear in the acetabulum with arthritic change and so total hip was continued with. Acetabular retractors were placed and a long handled knife was used to remove the ligament and the labrum in this area. Once this was removed transverse acetabular ligament was identified and the femoral head was measured and we started with reaming. Medializing reamer was done under fluoroscopic guidance this is medialized to the floor of the acetabulum and the teardrop. Once this was accomplished and then sequentially reamed out to a 52 size reamer. A 52 trial was then placed and was secured and had good bite. We then selected a 52 3-hole cup and this was placed optimally using fluoroscopic imaging. Once in position and a posterior superior screw was then drilled and placed with good bite. Liner was then selected and was impacted into position was tested and was secure. Liner was lipped and lipped was placed anteriorly. We then turned attention to femoral prep. The femoral elevator was placed under the gluteal sling and the femur was elevated traction was then removed and the leg was dropped externally rotated and abducted for visualization of the femur. Retractors were placed. The lateral capsule was then feathered off of the lateral portion of the femur and the greater trochanter to allow for excursion of visualization. Box osteotome was then used to access the femur and the femoral canal allow for lateralization. The rattail was then used to sound the femur. There was a large portion of the fracture fragment of the neck that had extended down almost to the portion of the lesser however this was a [id number] fracture and there was no calcar fracture noted at this time. We elected it safe to proceed then and sequential broaching was then done first with the UTOPY proper lateralizer and then sequential broaching until the appropriate size was reached. Once appropriate size was reduced the broach handle was removed and the standard trial neck was placed along with a 0 head. The leg was then abducted and elevated and fluoroscopic images taken the trial and the lateral looked to be in good position. We then atraumatically reduced the hip for trial. We then inspected leg lengths fluoroscopically and they were in good position. The hip was taken through a range of motion and was stable with no perching and no dislocation. The hip was then atraumatically dislocated and placed back into extension and abduction as well as external rotation trial components were removed and trial broach was tested and was stable. We then irrigated copiously the femoral canal as well as acetabular region Irricept was used as well. We then placed the final implant and impacted it in position and had good bites. The trunnion was then cleaned and dried and the head was placed and impacted. The head was tested and was stable. Hip was then atraumatically reduced and fluoroscopic imaging confirmed good reduction with good placement of final components as well as good leg lengths. Hip was taken again through range of motion And was stable throughout ranges of motion. Final fluoroscopic images taken. The wound was then copiously irrigated with normal sterile saline gauze Irricept and Betadine. Deep capsule portion was then closed with 0 Vicryl. 0 Vicryl was placed in the tensor fascia followed by running strata fix suture. 2-0 Vicryl was placed in subcu tissue followed by a running strata fix 3-0 subcutaneous suture. Wound edges approximated very well. The wound was then cleaned and dressed with an AO taping to the glue was allowed to dry and operative foam dressing was placed over this. The patient was then transferred back to their hospital bed. There were awakened by department of anesthesia having tolerated the procedure very well with no complications. The patient was then transported to the postoperative care unit in stable condition. Patient was seen in the PACU area was stable and awake. She was moving all 4 extremities with good strength. Postop images in PACU via portable x-ray showed good hip placement as well as stable reduction.
[2023-12-01 09:09] LABS: African American GFR (CKD) >90 (>60 ml/min/1.73 sqM); Anion Gap 2 mmol/L; Basophils # (A) 0.03 X 10*3/uL (0.00-0.10); Basophils % (A) 0.4 %; Blood Urea Nitrogen 8 mg/dL (7-17); Calcium 7.6 mg/dL (8.4-10.2); Carbon Dioxide 28 mmol/L (22-30); Chloride 106 mmol/L (98-107); Eosinophils # (A) 0.02 X 10*3/uL (0.04-0.35); Eosinophils % (A) 0.3 %; Glucose 102 mg/dL (74-99); HCT 28.4 % (37.2-46.3); HGB 9.6 g/dL (12.0-15.0); Lymphocytes % (A) 14.4 %; MCH 34.8 pg (27.0-32.0); MCHC 33.8 g/dL (32.0-37.0); MCV 102.9 FL (80.0-97.0); Magnesium 1.5 mg/dL (1.6-2.3); Mean Platelet Volume 11.3 FL (9.5-12.2); Monocytes # (A) 0.79 X 10*3/uL (0.20-1.00); Monocytes % (A) 10.3 %; NRBC Per 100 WBC 0 X 10*3/uL (0.00-0.01); Neutrophils # (A) 5.69 X 10*3/uL (1.80-7.70); Neutrophils % (A) 74.2 %; Non-African American GFR(CKD) >90 (>60 ml/min/1.73 sqM); Platelet Count 154 X 10*3/uL (140-440); Potassium 3.4 mmol/L (3.5-5.1); RBC 2.76 X 10*6/uL (4.10-5.20); RDW 12.3 % (11.5-14.5); Sodium 136 mmol/L (137-145); WBC 7.66 X 10*3/uL (4.50-10.00)
--- NOTE | 2023-12-01 09:51 | P.PN ---
Subjective Progress Note Date: 12/01/23 Principal diagnosis: Fall with trauma Right hip pain Patient seen and examined this morning. Patient is resting comfortably in bed. Patient states she has been ambulatory to the restroom since the procedure. She is tolerating activity well. Patient does have complaint of pain in the right hip with activity. She does report that the pain is managed on current regimen. Patient denies any numbness or tingling to the left lower extremity. Informed patient that physical therapy will begin to work with her today. Surgical incision to the right hip is clean dry and intact. Continue to encourage patient to be up in chair for all meals and use incentive spirometer while awake. Objective - Vital Signs Vital signs: Vital Signs Temp 98.9 F 12/01/23 02:21 Pulse 97 12/01/23 02:21 Resp 17 12/01/23 02:21 BP 97/58 12/01/23 02:21 Pulse Ox 94 L 12/01/23 02:21 FiO2 Intake & Output 11/30/23 12/01/23 12/01/23 18:59 06:59 18:59 Intake Total 351 Output Total 300 Balance 51 Intake: IV 351 Output: Urine 200 Estimated Blood Loss 100 Other: Voiding Method Toilet # Voids 200 2 - Exam Physical Examination General: The patient is awake and alert, in no acute distress Skin: Skin is warm and dry with no obvious rashes or lesions. Eye: Pupils are equal, round and reactive to light, extra-ocular movements are intact; there is normal conjunctiva bilaterally. Neck: The neck is supple, there is no tenderness and ROM intact. Cardiovascular: There is a regular rate and rhythm. No murmur, rub or gallop is appreciated. Respiratory: Lungs are clear to auscultation, respirations are non-labored, breath sounds are equal. Gastrointestinal: Soft, non-distended, non-tender abdomen. Back: There is mild tenderness to palpation over the right hip region. . Musculoskeletal: ROM limited secondary to pain and stiffness from surgical procedure. Muscle strength in all major muscle groups of bilateral upper extremities 5/5, left lower extremity 5/5, right lower extremity 4/5. Neurological: CN 2-12 intact. There are no obvious motor or sensory deficits. Movement and coordination equal and intact. Sensory exam to light touch intact C5-T1 and intact from L2-S1. Reflexes 2/4 in bilateral upper and lower extremities. Negative Hoffmans, babinski, and clonus signs. Psychiatric: Cooperative, appropriate mood & affect, normal judgment. - Labs CBC & Chem 7: 12/01/23 05:22 12/01/23 05:22 Labs: Abnormal Lab Results - Last 24 Hours (Table) 11/30/23 11/30/23 Range/Units 10:10 10:10 RBC 3.74 L (3.80-5.40) m/uL MCV 103.8 H (80.0-100.0) fL Carbon Dioxide 33 H (22-30) mmol/L Magnesium 1.3 L (1.6-2.3) mg/dL Assessment and Plan Assessment: Postop day 1: Right total hip arthroplasty Fall with trauma Right femoral neck fracture Osteopenia Diffuse muscle atrophy Plan: -Appreciate configuration consultant and team management. -Activity: Ambulate QID, OOB all meals, up and about, limit lifting bending twisting to less than 5 lbs. Use walker or cane if needed for stability. -Daily PT/OT, increase ambulation strength and balance. -Pain control: Adequate at this time -Meds: reviewed -GI ppx: senna, Miralax -DVT PPX: Aspirin -Hygiene: Shower today. Maintain dressing clean and dry. -Encourage IS 10x/hr -Dispo: Anticipate discharge home with home care versus subacute rehab in the next 24 to 48 hours. *I reviewed and discussed this case with my attending Dr. Aguilera, whom has reviewed this chart and films and is in agreement with assessment and plan of care as outlined above. I have personally seen and examined the patient, performed the documentation and the assessment and plan as written. Number of minutes spent on the visit: 20m.
[2023-12-01] MEDS: POTASSIUM CHLORIDE ER 20 MEQ TAB.ER PO STA (11:22)
[2023-12-01] MEDS: MAGNESIUM SULFATE-D5W PMX 1 GM in DEXTROSE/WATER 1 100ML.BAG IVPB SCH (11:27)
[2023-12-01] MEDS: HYDROCORTISONE 1% CREAM 30 GM TUBE TOPICAL PRN (13:08)
[2023-12-01] MEDS ORDERED: ALBUTEROL NEBULIZED 2.5 MG/3 ML INHALATION PRN (13:17)
[2023-12-01] MEDS ORDERED: traZODone HCL 50 MG TAB PO PRN (13:18)
--- NOTE | 2023-12-01 16:23 | P.PN ---
Subjective Progress Note Date: 12/01/23 Subjective: Patient seen and examined at bedside. No acute events overnight. Complaining of vulvar itching. He has been getting up out of the bed. No bowel movements. Pertinent positives and negatives as discussed above, a complete review of systems was performed and all other systems are negative. Vitals Signs Reviewed. General: Nontoxic, no distress, appears at stated age Derm: Warm, dry, dressing clean, dry, intact Head: Atraumatic, normocephalic, symmetric Eyes: EOMI, no lid lag, anicteric sclera Mouth: No lip lesion, mucus membranes moist Cardiovascular: S1S2 reg, no murmur Lungs: CTA bilateral, no rhonchi, no rales, no accessory muscle use Abdominal: Soft, nontender to palpation, no guarding, no appreciable organomegaly : No satellite lesions or erythema noted around the vulva, no discharge noted Ext: No gross muscle atrophy, no edema, no contractures Neuro: CN II-XI grossly intact, no focal neuro deficits Psych: Alert, oriented, appropriate affect Data Reviewed Today: Pertinent Labs: Hemoglobin 9.6, potassium 3.4, magnesium 1.5, creatinine 0.53, urinalysis negative Imaging: No new imaging Assessment and Plan: Active: Right femoral fracture status postrepair Acute blood loss anemia, anticipated outcome of fracture and surgery Mechanical fall -Pain control with oral [place] as needed, IV Dilaudid as needed, IV morphine as needed, monitor for sedation -Senna 2 at night, Maalox as needed -Aspirin 325 twice daily for DVT prophylaxis -Repeat CBC tomorrow Vaginal contact irritant dermatitis -Low potency steroid ordered Dyslipidemia -Atorvastatin 20 Hypokalemia Hypomagnesemia -40 mill equivalent oral potassium, 2 g IV magnesium ordered -Repeat BMP and magnesium tomorrow Nicotine dependence -On nicotine patch 21 mg daily Thank you for allowing us to participate in the care of this pleasant patient. Do not hesitate to contact us with questions. Someone can be reached from the [facility] [place] hospitalist group all hours of the day at [phone] or via [employer]. Objective - Vital Signs Vital signs: Vital Signs Temp 98.3 F 12/01/23 13:31 Pulse 95 12/01/23 13:31 Resp 18 12/01/23 13:31 BP 122/77 12/01/23 13:31 Pulse Ox 99 12/01/23 13:31 FiO2 Intake & Output 11/30/23 12/01/23 12/01/23 18:59 06:59 18:59 Intake Total 351 Output Total 300 Balance 51 Intake: IV 351 Output: Urine 200 Estimated Blood Loss 100 Other: Voiding Method Toilet # Voids 200 2 1 - Labs CBC & Chem 7: 12/01/23 05:22 12/01/23 05:22 Labs: Abnormal Lab Results - Last 24 Hours (Table) 12/01/23 12/01/23 Range/Units 05:22 05:22 RBC 2.76 L (4.10-5.20) X 10*6/uL Hgb 9.6 L (12.0-15.0) g/dL Hct 28.4 L (37.2-46.3) % MCV 102.9 H (80.0-97.0) FL MCH 34.8 H (27.0-32.0) pg Eosinophils # 0.02 L (0.04-0.35) X 10*3/uL Sodium 136 L (137-145) mmol/L Potassium 3.4 L (3.5-5.1) mmol/L Glucose 102 H (74-99) mg/dL Calcium 7.6 L (8.4-10.2) mg/dL Magnesium 1.5 L (1.6-2.3) mg/dL
[2023-12-01] MEDS: ATORVASTATIN 20 MG TAB PO SCH (20:05)
[2023-12-02 07:10] LABS: African American GFR (CKD) >90 (>60 ml/min/1.73 sqM); Anion Gap 1 mmol/L; Blood Urea Nitrogen 9 mg/dL (7-17); Calcium 7.6 mg/dL (8.4-10.2); Carbon Dioxide 27 mmol/L (22-30); Chloride 107 mmol/L (98-107); Glucose 81 mg/dL (74-99); Non-African American GFR(CKD) >90 (>60 ml/min/1.73 sqM); Sodium 135 mmol/L (137-145)
[2023-12-02 08:34] LABS: Magnesium 1.8 mg/dL (1.6-2.3); Potassium 3.9 mmol/L (3.5-5.1)
[2023-12-02 10:39] LABS: Basophils # (A) 0.02 X 10*3/uL (0.00-0.10); Basophils % (A) 0.3 %; Eosinophils # (A) 0.04 X 10*3/uL (0.04-0.35); Eosinophils % (A) 0.6 %; HCT 26.1 % (37.2-46.3); HGB 8.5 g/dL (12.0-15.0); Lymphocytes # (A) 1.54 X 10*3/uL (0.90-5.00); Lymphocytes % (A) 21.2 %; MCH 33.6 pg (27.0-32.0); MCHC 32.6 g/dL (32.0-37.0); MCV 103.2 FL (80.0-97.0); Mean Platelet Volume 11.5 FL (9.5-12.2); Monocytes # (A) 0.78 X 10*3/uL (0.20-1.00); Monocytes % (A) 10.8 %; NRBC Per 100 WBC 0 X 10*3/uL (0.00-0.01); Neutrophils # (A) 4.84 X 10*3/uL (1.80-7.70); Neutrophils % (A) 66.7 %; Platelet Count 147 X 10*3/uL (140-440); RBC 2.53 X 10*6/uL (4.10-5.20); RDW 12.4 % (11.5-14.5); WBC 7.25 X 10*3/uL (4.50-10.00)
[2023-12-02 10:55] LABS: INR 1.03 sec (0.93-1.11); Prothrombin Time 11.1 sec (9.9-11.9)
--- NOTE | 2023-12-02 12:32 | P.PN ---
Subjective Progress Note Date: 12/02/23 Principal diagnosis: Status post direct anterior right total hip arthroplasty, history of fall resulting in femoral neck fracture Patient was evaluated today at bedside, she is resting in her hospital chair. Patient has multiple family members at bedside. Patient was having a increase in pain earlier this morning, she did utilize IV pain medication. She has been improving with physical therapy. She is hoping to go home, the family is working on setting up room for her on the first floor. Currently she has no headaches, lightheadedness, chest pain or shortness of breath. Objective - Vital Signs Vital signs: Vital Signs Temp 98.9 F 12/02/23 02:17 Pulse 99 12/02/23 02:17 Resp 13 12/02/23 02:17 BP 94/58 12/02/23 02:17 Pulse Ox 94 L 12/02/23 02:17 FiO2 Intake & Output 12/01/23 12/02/23 12/02/23 18:59 06:59 18:59 Other: # Voids 1 1 - Exam Right lower extremity: Incision is clean, dry, and intact. The foam dressing is in good condition. There is minimal soft tissue swelling and ecchymosis surrounding the medial and lateral aspects of the incision. Calf is soft, no tenderness with palpation. Plantar flexion, dorsiflexion, EHL, FHL are intact. Sensory exam to light touch throughout the extremity is intact, dorsal pedis pulses 2+. - Labs CBC & Chem 7: 12/02/23 05:05 12/02/23 05:05 Labs: Abnormal Lab Results - Last 24 Hours (Table) 12/02/23 12/02/23 Range/Units 05:05 05:05 RBC 2.53 L (4.10-5.20) X 10*6/uL Hgb 8.5 L (12.0-15.0) g/dL Hct 26.1 L (37.2-46.3) % MCV 103.2 H (80.0-97.0) FL MCH 33.6 H (27.0-32.0) pg Sodium 135 L (137-145) mmol/L Creatinine 0.49 L (0.52-1.04) mg/dL Calcium 7.6 L (8.4-10.2) mg/dL Assessment and Plan Assessment: Postoperative day #1 status post direct anterior right total hip arthroplasty History of recent fall resulting in displaced right femoral neck fracture Acute blood loss anemia, expected surgical outcome Plan: Pain control, continue oral medications. IV pain medication for severe breakthrough pain DVT prophylaxis, continue current medications. Plan for use of oral aspirin at discharge Wound care instructions were discussed, this to include bandage and showering instructions Due to patient's significant drop in hemoglobin, did order 1 packed unit of RBCs to be transfused Continue working with PT Weight-bear as tolerated with walker Encourage incentive spirometer Medical recommendations appreciated Discharge planning: Patient planning for discharge to home with home health care on 12/03/2023 Time with Patient: Less than 30
--- NOTE | 2023-12-02 12:44 | P.PN ---
Subjective Progress Note Date: 12/02/23 Subjective: Patient seen and examined at bedside. No acute events overnight. Vulvar itching has resolved. Overall feeling a lot better. Pertinent positives and negatives as discussed above, a complete review of systems was performed and all other systems are negative. Vitals Signs Reviewed. General: Nontoxic, no distress, appears at stated age Derm: Warm, dry, dressing clean, dry, intact Head: Atraumatic, normocephalic, symmetric Eyes: EOMI, no lid lag, anicteric sclera Mouth: No lip lesion, mucus membranes moist Cardiovascular: S1S2 reg, no murmur Lungs: CTA bilateral, no rhonchi, no rales, no accessory muscle use Abdominal: Soft, nontender to palpation, no guarding, no appreciable organomegaly Ext: No gross muscle atrophy, no edema, no contractures Neuro: CN II-XI grossly intact, no focal neuro deficits Psych: Alert, oriented, appropriate affect Data Reviewed Today: Pertinent Labs: Hemoglobin 8.5, sodium 135, potassium 3.9, creatinine 0.49, magnesium 1.8 Imaging: No new imaging Assessment and Plan: Active: Right femoral fracture status postrepair Acute blood loss anemia, anticipated outcome of fracture and surgery Mechanical fall -Pain control with oral [place] as needed, IV Dilaudid as needed, IV morphine as needed, monitor for sedation -Senna 2 at night, Maalox as needed -Aspirin 325 twice daily for DVT prophylaxis -Repeat CBC tomorrow Vaginal contact irritant dermatitis -Low potency steroid as needed Dyslipidemia -Atorvastatin 20 Hypokalemia, resolved Hypomagnesemia, resolved Nicotine dependence -On nicotine patch 21 mg daily Thank you for allowing us to participate in the care of this pleasant patient. Do not hesitate to contact us with questions. Someone can be reached from the [facility] hospitalist group all hours of the day at [phone] or via [employer]. Objective - Vital Signs Vital signs: Vital Signs Temp 98.9 F 12/02/23 02:17 Pulse 99 12/02/23 02:17 Resp 13 12/02/23 02:17 BP 94/58 12/02/23 02:17 Pulse Ox 94 L 12/02/23 02:17 FiO2 Intake & Output 12/01/23 12/02/23 12/02/23 18:59 06:59 18:59 Other: # Voids 1 1 - Labs CBC & Chem 7: 12/02/23 05:05 12/02/23 05:05 Labs: Abnormal Lab Results - Last 24 Hours (Table) 12/02/23 12/02/23 Range/Units 05:05 05:05 RBC 2.53 L (4.10-5.20) X 10*6/uL Hgb 8.5 L (12.0-15.0) g/dL Hct 26.1 L (37.2-46.3) % MCV 103.2 H (80.0-97.0) FL MCH 33.6 H (27.0-32.0) pg Sodium 135 L (137-145) mmol/L Creatinine 0.49 L (0.52-1.04) mg/dL Calcium 7.6 L (8.4-10.2) mg/dL
[2023-12-02] MEDS: FERROUS SULFATE 325 MG TAB PO SCH (16:45)
[2023-12-03 07:07] LABS: African American GFR (CKD) >90 (>60 ml/min/1.73 sqM); Anion Gap 1 mmol/L; Blood Urea Nitrogen 10 mg/dL (7-17); Calcium 7.8 mg/dL (8.4-10.2); Carbon Dioxide 29 mmol/L (22-30); Chloride 106 mmol/L (98-107); Glucose 77 mg/dL (74-99); Non-African American GFR(CKD) >90 (>60 ml/min/1.73 sqM); Potassium 3.5 mmol/L (3.5-5.1); Sodium 136 mmol/L (137-145)
[2023-12-03] MEDS: MAGNESIUM SULFATE-D5W PMX 1 GM in DEXTROSE/WATER 1 100ML.BAG IVPB SCH (08:12)
--- NOTE | 2023-12-03 08:39 | P.PN ---
Subjective Progress Note Date: 12/03/23 Principal diagnosis: Fall with trauma Right hip pain Patient seen and examined this morning. Patient is resting comfortably in bed. Patient states she has been ambulatory within room and hallway, tolerating activity well. Pateint does express she has had two incidents of having urinary incontinence. She states she had sudden urges to urinate and was not able to make it to the restroom. She has requested a bedside commode for home. Prescription was lef tin chart. Patient does have complaint of pain in the right hip with activity. She does report that the pain is managed on current regimen. Patient denies any numbness or tingling to the left lower extremity. Surgical incision to the right hip is clean dry and intact. Continue to encourage patient to be up in chair for all meals and use incentive spirometer while awake. Patient reports she feels comfortable and safe going home. Objective - Vital Signs Vital signs: Vital Signs Temp 98.5 F 12/03/23 01:04 Pulse 94 12/03/23 01:04 Resp 15 12/03/23 01:04 BP 124/68 12/03/23 01:04 Pulse Ox 99 12/03/23 01:04 FiO2 Intake & Output 12/02/23 12/03/23 12/03/23 18:59 06:59 18:59 Intake Total 310 Balance 310 Intake: Blood Product 310 Rc As-1 Unit 310 [id number] Other: Voiding Method Toilet # Voids 2 1 - Exam Physical Examination General: The patient is awake and alert, in no acute distress Skin: Skin is warm and dry with no obvious rashes or lesions. Surgical incision to the anterior right hip, dressing is CDI. Eye: Pupils are equal, round and reactive to light, extra-ocular movements are intact; there is normal conjunctiva bilaterally. Neck: The neck is supple, there is no tenderness and ROM intact. Cardiovascular: There is a regular rate and rhythm. No murmur, rub or gallop is appreciated. Respiratory: Lungs are clear to auscultation, respirations are non-labored, breath sounds are equal. Gastrointestinal: Soft, non-distended, non-tender abdomen. Back: There is mild tenderness to palpation over the right hip region. . Musculoskeletal: ROM limited secondary to pain and stiffness from surgical procedure. Muscle strength in all major muscle groups of bilateral upper extremities 5/5, left lower extremity 5/5, right lower extremity 4/5. Neurological: CN 2-12 intact. There are no obvious motor or sensory deficits. Movement and coordination equal and intact. Sensory exam to light touch intact C5-T1 and intact from L2-S1. Reflexes 2/4 in bilateral upper and lower extremities. Negative Hoffmans, babinski, and clonus signs. Psychiatric: Cooperative, appropriate mood & affect, normal judgment. - Labs CBC & Chem 7: 12/02/23 05:05 12/03/23 05:19 Labs: Abnormal Lab Results - Last 24 Hours (Table) 11/29/23 12/02/23 12/02/23 Range/Units 18:28 05:05 05:05 RBC 2.53 L (4.10-5.20) X 10*6/uL Hgb 8.5 L (12.0-15.0) g/dL Hct 26.1 L (37.2-46.3) % MCV 103.2 H (80.0-97.0) FL MCH 33.6 H (27.0-32.0) pg Sodium 135 L (137-145) mmol/L Creatinine 0.49 L (0.52-1.04) mg/dL Calcium 7.6 L (8.4-10.2) mg/dL Magnesium (1.6-2.3) mg/dL Crossmatch See Detail 12/03/23 12/03/23 Range/Units 05:19 05:19 RBC (4.10-5.20) X 10*6/uL Hgb (12.0-15.0) g/dL Hct (37.2-46.3) % MCV (80.0-97.0) FL MCH (27.0-32.0) pg Sodium 136 L (137-145) mmol/L Creatinine 0.50 L (0.52-1.04) mg/dL Calcium 7.8 L (8.4-10.2) mg/dL Magnesium 1.5 L (1.6-2.3) mg/dL Crossmatch Assessment and Plan Assessment: Postop day 3: Anterior Right total hip arthroplasty Fall with trauma Right femoral neck fracture Osteopenia Diffuse muscle atrophy Plan: -Appreciate lead sales consultant and team management. -Activity: Ambulate QID, OOB all meals, up and about, limit lifting bending twisting to less than 5 lbs. Use walker or cane if needed for stability. -Daily PT/OT, increase ambulation strength and balance. -Prescription placed in chart for Bedside commode. -Urinalysis ordered to r/o UTI. -Pain control: Adequate at this time -Meds: reviewed -GI ppx: senna, Miralax -DVT PPX: Aspirin -Hygiene: Shower today. Maintain dressing clean and dry. -Encourage IS 10x/hr -Dispo: Anticipate discharge home with home care later today. *I reviewed and discussed this case with my attending Dr. Aguilera, whom has reviewed this chart and films and is in agreement with assessment and plan of care as outlined above. I have personally seen and examined the patient, performed the documentation and the assessment and plan as written. Number of minutes spent on the visit: 20m.
[2023-12-03 09:54] VITALS: BP 114/71; PULSE 100; RESP 16; TEMP 98.8
--- NOTE | 2023-12-03 10:23 | P.PN ---
Subjective Progress Note Date: 12/03/23 Subjective: Patient seen and examined at bedside. No acute events overnight. Complaining of incontinence has been going on for a long time. Pertinent positives and negatives as discussed above, a complete review of systems was performed and all other systems are negative. Vitals Signs Reviewed. General: Nontoxic, no distress, appears at stated age Derm: Warm, dry, dressing clean, dry, intact Head: Atraumatic, normocephalic, symmetric Eyes: EOMI, no lid lag, anicteric sclera Mouth: No lip lesion, mucus membranes moist Cardiovascular: S1S2 reg, no murmur Lungs: CTA bilateral, no rhonchi, no rales, no accessory muscle use Abdominal: Soft, nontender to palpation, no guarding, no appreciable organomegaly Ext: No gross muscle atrophy, no edema, no contractures Neuro: CN II-XI grossly intact, no focal neuro deficits Psych: Alert, oriented, appropriate affect Data Reviewed Today: Pertinent Labs: CBC pending, will be reviewed when available, potassium 3.5, creatinine 0.5, magnesium 1.5 Imaging: No new imaging Assessment and Plan: Active: Right femoral fracture status postrepair Acute blood loss anemia, anticipated outcome of fracture and surgery Mechanical fall -Pain control with oral Deridder as needed, IV Dilaudid as needed, IV morphine as needed, monitor for sedation -Senna 2 at night, Maalox as needed -Aspirin 325 twice daily for DVT prophylaxis -On oral ferrous sulfate Orthopedic surgery -Repeat CBC pending Vaginal contact irritant dermatitis, resolved -Low potency steroid as needed Dyslipidemia -Atorvastatin 20 Hypokalemia, resolved Hypomagnesemia-ordered 2 g IV magnesium today Nicotine dependence -On nicotine patch 21 mg daily Stress/urge incontinence -Has been going on for multiple months -Outpatient follow-up with urology -infection unlikely Patient is medically optimized for discharge. Thank you for allowing us to participate in the care of this pleasant patient. Do not hesitate to contact us with questions. Someone can be reached from the [facility] hospitalist group all hours of the day at [phone] or via perfect serve. Objective - Vital Signs Vital signs: Vital Signs Temp 98.8 F 12/03/23 07:20 Pulse 100 12/03/23 07:20 Resp 16 12/03/23 07:20 BP 114/71 12/03/23 07:20 Pulse Ox 98 12/03/23 07:20 FiO2 Intake & Output 12/02/23 12/03/23 12/03/23 18:59 06:59 18:59 Intake Total 310 Balance 310 Intake: Blood Product 310 Rc As-1 Unit 310 [id number] Other: Voiding Method Toilet # Voids 2 1 - Labs CBC & Chem 7: 12/02/23 05:05 12/03/23 05:19 Labs: Abnormal Lab Results - Last 24 Hours (Table) 11/29/23 12/02/23 12/03/23 Range/Units 18:28 05:05 05:19 RBC 2.53 L (4.10-5.20) X 10*6/uL Hgb 8.5 L (12.0-15.0) g/dL Hct 26.1 L (37.2-46.3) % MCV 103.2 H (80.0-97.0) FL MCH 33.6 H (27.0-32.0) pg Sodium (137-145) mmol/L Creatinine (0.52-1.04) mg/dL Calcium (8.4-10.2) mg/dL Magnesium 1.5 L (1.6-2.3) mg/dL Crossmatch See Detail 12/03/23 Range/Units 05:19 RBC (4.10-5.20) X 10*6/uL Hgb (12.0-15.0) g/dL Hct (37.2-46.3) % MCV (80.0-97.0) FL MCH (27.0-32.0) pg Sodium 136 L (137-145) mmol/L Creatinine 0.50 L (0.52-1.04) mg/dL Calcium 7.8 L (8.4-10.2) mg/dL Magnesium (1.6-2.3) mg/dL Crossmatch
[2023-12-03 10:28] LABS: Basophils # (A) 0.03 X 10*3/uL (0.00-0.10); Basophils % (A) 0.4 %; Eosinophils % (A) 1.4 %; HCT 29.5 % (37.2-46.3); HGB 10.1 g/dL (12.0-15.0); Lymphocytes # (A) 1.35 X 10*3/uL (0.90-5.00); Lymphocytes % (A) 18.4 %; MCH 33.7 pg (27.0-32.0); MCHC 34.2 g/dL (32.0-37.0); MCV 98.3 FL (80.0-97.0); Mean Platelet Volume 10.5 FL (9.5-12.2); Monocytes # (A) 0.78 X 10*3/uL (0.20-1.00); Monocytes % (A) 10.6 %; NRBC Per 100 WBC 0 X 10*3/uL (0.00-0.01); Neutrophils # (A) 5.04 X 10*3/uL (1.80-7.70); Neutrophils % (A) 68.8 %; Platelet Count 152 X 10*3/uL (140-440); RDW 13.8 % (11.5-14.5); WBC 7.33 X 10*3/uL (4.50-10.00)
--- NOTE | 2023-12-03 12:43 | P.DS ---
Providers Date of admission: 11/29/23 17:20 Expected date of discharge: 12/03/23 Attending physician: Juan Aguilera DO Consults: 11/29/23 19:53 Consult Physician Routine Consulting Provider: Sandra Chatterjee Consult Reason/Comments: Medical Management Do you want consulting provider notified?: Yes, Notify in am Primary care physician: Beni Rasheed [place] Hospital Course: Hospital Course: The patient was evaluated preoperatively and found to have the diagnosis of Right femoral neck fracture They underwent appropriate preoperative care and were willing to undergo the intended procedure. They underwent a successful right anterior total hip arthroplasty were recovered appropriately and sent to the floor. While on the floor they worked with physical therapy, occupational therapy and nursing to enhance their recovery experience. Their pain was well controlled through their stay and they were started on appropriate medications, DVT ppx modalities, activity and dietary needs. Daily labs were monitored closely, and transfusions were only used when necessary. Medicine as well as other consulting services have made their input and have helped with our team approach and multidisciplinary care. PT milestones have been met and passed and they have made the recommendation of Home with home care for this patient and treating providers agree with this care path. The patient will be discharged home with appropriate medications, instructions and follow-up information and in stable condition. Patient Condition at Discharge: Good Plan - Discharge Summary Discharge Rx Participant: No New Discharge Prescriptions: New Aspirin 325 mg PO BID #60 tab HYDROcodone/APAP 7.5-325MG [Felch 7.5] 1 each PO Q6HR PRN #42 tab PRN Reason: Pain Sennosides/Docusate Sodium [Senna Plus 8.6-50 mg Softgel] 1 each PO DAILY PRN #20 capsule PRN Reason: Constipation Continue traZODone HCL [Desyrel] 50 mg PO HS PRN PRN Reason: Insomnia Albuterol Sulfate [Albuterol Sulfate Hfa] 2 puff PO RT-Q6H PRN PRN Reason: Shortness Of Breath Atorvastatin [Lipitor] 20 mg PO HS Discontinued hydroCHLOROthiazide [Hydrodiuril] 12.5 mg PO DAILY atenoloL [Tenormin] 50 mg PO BID Discharge Medication List Albuterol Sulfate [Albuterol Sulfate Hfa] 2 puff PO RT-Q6H PRN 11/29/23 [History] Atorvastatin [Lipitor] 20 mg PO HS 11/29/23 [History] traZODone HCL [Desyrel] 50 mg PO HS PRN 11/29/23 [History] Aspirin 325 mg PO BID #60 tab 12/03/23 [Rx] HYDROcodone/APAP 7.5-325MG [Felch 7.5] 1 each PO Q6HR PRN #42 tab 12/03/23 [Rx] Sennosides/Docusate Sodium [Senna Plus 8.6-50 mg Softgel] 1 each PO DAILY PRN #20 capsule 12/03/23 [Rx] Follow up Appointment(s)/Referral(s): Beni Hercules MD [Primary Care Provider] - 1-2 days [facility], [NON-STAFF] - 1-2 Days ([facility] will call you to schedule your in home nursing, physical therapy, and occupational therapy visits. ) Juan Aguilera DO [Doctor of Osteopathic Medicine] - 12/17/23 3:30 pm Ajay Mullen MD [STAFF PHYSICIAN] - 1 Week Activity/Diet/Wound Care/Special Instructions: Orthopedic Discharge Instructions: 1. Wound care and infection precautions, keep incision dry and covered while showering, no lotions, creams, moisturizers. No soaking, pools, hot tubs. Do not scrub over incision. 2. Weight-bear as tolerated with walker / cane until follow-up. 3. Ice and elevate when necessary. Do not exceed 20 minutes per hour with ice pack. 4. Utilize compression sleeve until seen at first follow up appointment. 5. Pain meds and anticoagulants per prescription. 6. Pain medication has potential to cause constipation. Increase oral fluid and fiber intake. Contact primary care provider if you have not had a bowel movement within 48 hours after discharge. 7. No anti-inflammatory medication until discussed at first post operative visit, this including Motrin, Aleve, Mobic, Diclofenac. 8. Follow up in office at 2 weeks postop with Tono Cooper PA-C/Robby Gorman PA-C 9. Follow up with your primary care doctor 7-10 days after discharge. 10. Contact [facility] with any questions, . Please see urology for stress/urge incontinence. Your BP meds have been discontinued. Please see your PCP prior to restarting. Discharge Disposition: HOME WITH HOME HEALTH SERVICES
[2023-12-03 13:59] LABS: Appearance,Urine Clear (Clear); Bilirubin,Urine Negative (Negative); Blood,Urine Negative (Negative); Color,Urine Yellow; Glucose,Urine (UA) Negative (Negative); Ketones,Urine Negative (Negative); Leukocyte Esterase,Urine Negative (Negative); Nitrite,Urine Negative (Negative); PH, Urine 5.5 (5.0-8.0); Protein,Urine Negative (Negative); Specific Gravity,Urine 1.019 (1.001-1.035); Urobilinogen,Urine <2.0 mg/dL (<2.0)
== END 2023-12-03 14:35 | disposition home health service (06) | DRG 522 ==
LOC: EC 16:09 → 4SSUR 17:20
PROVIDERS: ADMIT Orthopaedic Surgery; ATTEND Orthopaedic Surgery
PROC: 0SR90JZ Replacement of Right Hip Joint with Synthetic Substitute, Open Approach (ICD-10-PCS; principal; 2023-11-29)
PROC: 3E0T3BZ Introduction of Anesthetic Agent into Peripheral Nerves and Plexi, Percutaneous Approach (ICD-10-PCS; 2023-11-29)
PROC: 30233N1 Transfusion of Nonautologous Red Blood Cells into Peripheral Vein, Percutaneous Approach (ICD-10-PCS; 2023-12-02)
DX: S72.001A Fracture of unspecified part of neck of right femur, initial encounter for closed fracture (principal); D62 Acute posthemorrhagic anemia; E78.5 Hyperlipidemia, unspecified; F17.210 Nicotine dependence, cigarettes, uncomplicated; M41.9 Scoliosis, unspecified; I10 Essential (primary) hypertension; Y92.009 Unspecified place in unspecified non-institutional (private) residence as the place of occurrence of the external cause; W01.0XXA Fall on same level from slipping, tripping and stumbling without subsequent striking against object, initial encounter; E83.42 Hypomagnesemia; N39.46 Mixed incontinence; E87.6 Hypokalemia; M16.11 Unilateral primary osteoarthritis, right hip; M85.88 Other specified disorders of bone density and structure, other site; S72.031A Displaced midcervical fracture of right femur, initial encounter for closed fracture; L30.9 Dermatitis, unspecified; Z71.6 Tobacco abuse counseling; K21.9 Gastro-esophageal reflux disease without esophagitis; J45.909 Unspecified asthma, uncomplicated
CPT/HCPCS: 36415; 71045; 72170; 73501; 80048; 81003; 82550; 82552; 83735; 84132; 85025; 85027; 85610; 85730; 86850; 86900; 86901; 86920; 93005; 96361; 96374; 99285

== ENCOUNTER → 2023-12-05 | Outpatient (CLI) | payer BC ==
--- NOTE | 2023-12-06 02:49 | US ---
EXAMINATION TYPE: US venous doppler duplex LE RT DATE OF EXAM: 12/05/2023 2:26 PM COMPARISON: NONE CLINICAL INDICATION: Female, 63 years old with history of R22.41 SWELLING RLE; Edema and pain right l eg. Right total hip replacement 11/30/23 SIDE PERFORMED: right TECHNIQUE: The lower extremity deep venous system is examined utilizing real time linear array sonog hollie with graded compression, doppler sonography and color-flow sonography. VESSELS IMAGED: Common Femoral Vein Deep Femoral Vein Greater Saphenous Vein * Femoral Vein Popliteal Vein Small Saphenous Vein * Proximal Calf Veins (* superficial vessels) Grayscale, color doppler, spectral doppler imaging performed of the deep veins of the right lower ext remity. There is normal flow, compressibility, vascular waveforms. Right Leg: no evidence of DVT as visualized IMPRESSION: No deep venous thrombosis of the right lower extremity.
== END | disposition home or self-care (01) ==
LOC: RADUSWWP 13:51
PROVIDERS: ATTEND Orthopaedic Surgery
DX: R22.41 Localized swelling, mass and lump, right lower limb (principal)

== ENCOUNTER → 2024-05-27 | Outpatient (CLI) | payer MEDICARE ==
--- NOTE | 2024-05-31 10:29 | CT ---
EXAMINATION TYPE: CT abdomen wo con DATE OF EXAM: 05/27/2024 8:33 AM COMPARISON: None. CLINICAL INDICATION: Female, 64 years old with history of Z68.1 BMI 19.9 OR LESS, NO APPETITE TECHNIQUE: Axial images were obtained from above the diaphragm to the pubic rami in the axial plane a t 5 mm thick sections. Reconstructed images are reviewed on the computer in the coronal plane. CONTRAST: mL of . Study performed without Oral Contrast DLP: 116.9 mGycm, Automated exposure control for dose reduction was used. FINDINGS: Limited CT sections are obtained the lung bases. The lung bases are clear. CT ABDOMEN: Liver: Normal Spleen: Calcified granulomas within the spleen. Pancreas: Normal. The common bile duct at the head of the pancreas is enlarged measuring 1.2 cm. Ther e appears to be some calcifications within the distal common bile duct within the head of the pancrea s, example image series 3 image 29. Adrenal glands: The adrenal glands are normal. Gallbladder: Normal no gallstones are identified. Kidneys: No masses are evident. No hydronephrosis is present. No cysts are present. No renal stone s are evident. Aorta: Vascular calcification is within the aorta. Inferior vena cava: Normal. Loops of bowel within the abdomen and upper pelvis appear unremarkable. No dilated loops of bowel. Th ere may be some wall thickening of the ascending colon. Correlate with location of patient's pain. Th is study is without oral contrast limiting bowel resection. IMPRESSION: 1. Some mild wall thickening of the ascending colon may be present. Correlate for mild colitis. 2. Dilated common bile duct with several hyperdense areas within the distal common bile duct within t he head of the pancreas suspicious for common bile duct gravel. Consider additional workup with ERCP. [facility], , 05/31/2024 10:26 AM
== END | disposition home or self-care (01) ==
LOC: RADCTMAIN 08:18
PROVIDERS: ATTEND Family Medicine
DX: K83.8 Other specified diseases of biliary tract (principal); K52.89 Other specified noninfective gastroenteritis and colitis; I70.0 Atherosclerosis of aorta; Z68.1 Body mass index [BMI] 19.9 or less, adult
CPT/HCPCS: 74150